=== PATIENT | female | born 1980 | race Caucasian/White ===

== ENCOUNTER 2017-03-09 08:35 | Emergency (ER) | payer OTHER ==
[2017-03-09 08:45] VITALS: BP 127/89
--- NOTE | 2017-03-09 08:55 | UC ---
Respiratory Complaint HPI - HPI Summary HPI Summary: cough x 6 days + chest congestion and pressure, cough is dry, constant, + sob, wheezing, no fever, + chills, fatigue no nasal congestion - History of Current Complaint Chief Complaint: UCRespiratory Stated Complaint: CHEST CONGESTION Time Seen by Provider: 03/09/17 08:46 Hx Obtained From: Patient Hx Last Menstrual Period: unknown ?: No Onset/Duration: Gradual Onset, Lasting Days - 6, Still Present, Worse Since - past 2 days Severity Initially: Mild Severity Currently: Moderate Character: Cough: Nonproductive Aggravating Factors: Exertion, Deep Breaths Alleviating Factors: Nothing Associated Signs And Symptoms: Positive: Dyspnea, Chills, Pleuritic Chest Pain, Wheezing. Negative: Fever, Hemoptysis, Dizziness, Calf Pain, Calf Swelling, Edema, URI, Nasal Congestion, Hoarseness - Allergies/Home Medications Allergies/Adverse Reactions: Allergies Allergy/AdvReac Type Severity Reaction Status Date / Time Sulfa Drugs AdvReac Mild Vomiting Verified 03/09/17 08:40 PMH/Surg Hx/FS Hx/Imm Hx Previously Healthy: Yes - Surgical History Surgical History: Yes Surgery Procedure, Year, and Place: Ovaries removed 11/2014 - Family History Known Family History: Positive: Hypertension, Other - Social History Alcohol Use: Rare Substance Use Type: None Smoking Status (MU): Never Smoked Tobacco - Immunization History Most Recent Influenza Vaccination: NOT THIS SEASON Review of Systems Constitutional: Chills, Fatigue Skin: Negative Eyes: Negative ENT: Negative Respiratory: Shortness Of Breath, Cough Cardiovascular: Negative Is Patient Immunocompromised?: No All Other Systems Reviewed And Are Negative: Yes Physical Exam Triage Information Reviewed: Yes Appearance: Well-Appearing, No Pain Distress, Well-Nourished Vital Signs: Initial Vital Signs Temp 98.2 F 03/09/17 08:40 Pulse 66 03/09/17 08:40 Resp 18 03/09/17 08:40 BP 127/89 03/09/17 08:40 Pulse Ox 100 03/09/17 08:40 Vital Signs Reviewed: Yes Eye Exam: Normal Eyes: Positive: Conjunctiva Clear ENT: Positive: Normal ENT inspection, Hearing grossly normal, Pharynx normal Neck exam: Normal Neck: Positive: Supple, Nontender, No Lymphadenopathy Respiratory: Positive: Chest non-tender, Lungs clear, No respiratory distress, No accessory muscle use, Decreased breath sounds Cardiovascular: Positive: RRR, No Murmur, Pulses Normal Neurological Exam: Normal Skin Exam: Normal UC Diagnostic Evaluation - Laboratory O2 Sat by Pulse Oximetry: 100 Respiratory Course/Dx - Differential Dx/Diagnosis Provider Diagnoses: Bronchitis Discharge - Discharge Plan Condition: Stable Disposition: HOME Prescriptions: Azithromycin TAB* [Zithromax TAB (Z-SELAM) 250 mg #6 tabs] 2 tab PO .TODAY, THEN 1 DAILY #1 selam Benzonatate [TESSALON 200 MG CAP] 200 mg PO Q8H #21 cap Patient Education Materials: Acute Bronchitis (ED) Referrals: No Primary Care Phys,NOPCP [Primary Care Provider] - If Needed
--- NOTE | 2017-03-09 09:07 | RAD ---
Indication: Cough, shortness of breath. 2 views of the chest including dual energy PA views demonstrates no mediastinal shift. Heart is of normal size and configuration. Lung geller are clear. IMPRESSION: No active cardiopulmonary disease is noted.
== END 2017-03-09 09:19 | disposition home or self-care (01) ==
LOC: UCCORT 08:35
DX: J40 Bronchitis, not specified as acute or chronic (principal); Z88.2 Allergy status to sulfonamides
CPT/HCPCS: 71020; 99212; G0463

== ENCOUNTER 2017-07-12 17:25 | Emergency (ER) | payer OTHER ==
[2017-07-12 18:08] VITALS: BP 120/80
[2017-07-12] MEDS ORDERED: Oseltamivir CAP* 75 MG PO ONE (20:38)
[2017-07-12] MEDS ORDERED: Acetaminophen TAB* 325 MG PO ONE (20:39)
--- NOTE | 2017-07-12 20:39 | UC ---
FLU HPI - HPI Summary HPI Summary: Pt presents to with son. Pt states on Sat thought was getting a head cold. yesterday "thought I got hit by a truck." Pt with body aches, fevers cough and fatigue. No n/v/d + Po Tmax 101. + OTC motrin. No cp + cough son also ill Did not get flu vaccine this year Pt's med reviewed this visit - History of Current Complaint Chief Complaint: UCRespiratory Stated Complaint: FEVER,CHILLS,COUGH Time Seen by Provider: 07/12/17 20:18 Hx Obtained From: Patient Hx Last Menstrual Period: 3 yrs ago ?: No Onset/Duration: Gradual Onset, Lasting Days - Allergy/Home Medications Allergies/Adverse Reactions: Allergies Allergy/AdvReac Type Severity Reaction Status Date / Time Sulfa Drugs AdvReac Mild Vomiting Verified 07/12/17 18:02 Home Medications: Home Medications Estradiol TAB(NF) 1 mg BEDTIME 07/12/17 [History Confirmed 07/12/17] medroxyPROGESTERone TAB* [Provera TAB*] 5 mg BEDTIME 07/12/17 [History Confirmed 07/12/17] PMH/Surg Hx/FS Hx/Imm Hx Previously Healthy: Yes - Surgical History Surgical History: Yes Surgery Procedure, Year, and Place: Ovaries removed 11/2014 - Family History Known Family History: Positive: Hypertension, Other - Social History Occupation: Employed Full-time Lives: With Family Alcohol Use: None Substance Use Type: None Smoking Status (MU): Never Smoked Tobacco - Immunization History Most Recent Influenza Vaccination: NOT THIS SEASON Review of Systems Constitutional: Fever, Chills, Fatigue Skin: Negative Eyes: Negative ENT: Negative, Sore Throat, Nasal Discharge, Sinus Congestion Respiratory: Cough Cardiovascular: Negative Gastrointestinal: Negative Genitourinary: Negative Motor: Negative Neurovascular: Negative Musculoskeletal: Negative, Arthralgia Neurological: Negative All Other Systems Reviewed And Are Negative: Yes Physical Exam Triage Information Reviewed: Yes Appearance: Well-Appearing, No Pain Distress, Well-Nourished Vital Signs: Initial Vital Signs Temp 100.5 F 07/12/17 18:03 Pulse 99 07/12/17 18:03 Resp 24 07/12/17 18:03 BP 120/80 07/12/17 18:03 Pulse Ox 99 07/12/17 18:03 Vital Signs Reviewed: Yes Eye Exam: Normal Eyes: Positive: Conjunctiva Clear ENT: Positive: Pharyngeal erythema, Nasal congestion, Nasal drainage, TMs normal Dental Exam: Normal Neck exam: Normal Neck: Positive: Supple, Nontender, No Lymphadenopathy Respiratory Exam: Normal Respiratory: Positive: Chest non-tender, Lungs clear, Normal breath sounds, No respiratory distress, No accessory muscle use Cardiovascular Exam: Normal Cardiovascular: Positive: RRR, No Murmur, Pulses Normal Abdominal Exam: Normal Abdomen Description: Positive: Nontender, No Organomegaly, Soft Bowel Sounds: Positive: Present Musculoskeletal Exam: Normal Neurological Exam: Normal Neurological: Positive: Alert Psychological Exam: Normal Skin Exam: Normal Flu Course/Dx - Course Course Of Treatment: + flu. Will start tamiflu. hydrate. secretion precaution. motrin/apap - Differential Dx/Diagnosis Provider Diagnoses: influenza Discharge - Discharge Plan Condition: Stable Disposition: HOME Prescriptions: Oseltamivir CAP* [Tamiflu CAP*] 75 mg PO BID #10 cap Patient Education Materials: Influenza (ED) Forms: *Gen. Provider Communication, *Work Release Referrals: No Primary Care Phys,NOPCP [Primary Care Provider] - Additional Instructions: - stay well hydrated. Drink plenty of non-alcoholic, non-caffinated beverages - Take tamiflu 2 times a day as prescribed until gone - alternate ibuprofen (Advil, Motrin) and tylenol every 3hours for pain. Take with food - get plenty of restful sleeps - - After you have been on Tamiflu for 2 days - change your toothbrush and your pillowcase. These infections are spread by secrtions - do NOT share eating or drinking utensils - clean items you share with other people such as iphone, computer mouse, TV remote, etc - contact your doctor or return with questions or concerns
== END 2017-07-12 20:58 | disposition home or self-care (01) ==
LOC: UCCORT 17:25
DX: J11.1 Influenza due to unidentified influenza virus with other respiratory manifestations (principal); Z88.2 Allergy status to sulfonamides
CPT/HCPCS: 87502; 99212; A9270-GY; G0463

== ENCOUNTER 2017-08-21 21:25 | Emergency (ER) | payer OTHER ==
[2017-08-21 21:39] VITALS: BP 123/80
[2017-08-21] MEDS ORDERED: Albuterol HFA INHALER* 8 gm MDI INH ONE (21:41)
--- NOTE | 2017-08-21 21:49 | UC ---
UC General HPI - HPI Summary HPI Summary: head congestion, sore throat, cough and chest congestion for a couple of days. pt notes lungs are a little tight. no cp, sob or wheezing. no fever or hx asthma. - History of Current Complaint Chief Complaint: UCRespiratory Stated Complaint: SORE THROAT Time Seen by Provider: 08/21/17 21:33 Hx Obtained From: Patient Hx Last Menstrual Period: unknown, ovaries removed Onset/Duration: Gradual Onset Timing: Constant Pain Intensity: 6 Associated Signs & Symptoms: Positive: Cough. Negative: Chest Pain, Fever, SOB , Wheezing - Allergy/Home Medications Allergies/Adverse Reactions: Allergies Allergy/AdvReac Type Severity Reaction Status Date / Time Sulfa (Sulfonamide Allergy Vomiting Verified 08/21/17 21:39 Antibiotics) Home Medications: Home Medications Pseudoephedrine HCL ER TAB* [Sudafed 12 Hour*] 120 mg PO BID 08/21/17 [History Confirmed 08/21/17] PMH/Surg Hx/FS Hx/Imm Hx Previously Healthy: Yes - Surgical History Surgical History: Yes Surgery Procedure, Year, and Place: Ovaries removed 11/2014 - Family History Known Family History: Positive: Hypertension, Other - Social History Lives: With Family Alcohol Use: None Substance Use Type: None Smoking Status (MU): Never Smoked Tobacco - Immunization History Most Recent Influenza Vaccination: NOT THIS SEASON Vaccination Up to Date: Yes Review of Systems Constitutional: Negative Skin: Negative Eyes: Negative ENT: Sore Throat, Sinus Congestion Respiratory: Cough Cardiovascular: Negative Gastrointestinal: Negative Genitourinary: Negative Motor: Negative Neurovascular: Negative Musculoskeletal: Negative Neurological: Negative Psychological: Negative Is Patient Immunocompromised?: No All Other Systems Reviewed And Are Negative: Yes Physical Exam Triage Information Reviewed: Yes Appearance: Well-Appearing Vital Signs: Initial Vital Signs Temp 97.5 F 08/21/17 21:31 Pulse 71 08/21/17 21:31 Resp 16 08/21/17 21:31 BP 123/80 08/21/17 21:31 Pulse Ox 100 08/21/17 21:31 Vital Signs Reviewed: Yes Eyes: Positive: Conjunctiva Clear ENT: Positive: Pharyngeal erythema, Nasal congestion, TMs normal, Uvula midline. Negative: Tonsillar swelling, Tonsillar exudate, Trismus, Muffled voice, Hoarse voice, Dental tenderness Neck: Positive: Supple, Nontender, No Lymphadenopathy Respiratory: Positive: Lungs clear, No respiratory distress, Decreased breath sounds Cardiovascular: Positive: RRR, No Murmur Abdomen Description: Positive: Nontender, No Organomegaly, Soft Bowel Sounds: Positive: Present Musculoskeletal: Positive: No Edema Neurological: Positive: Alert Psychological: Positive: Age Appropriate Behavior Skin Exam: Normal Diagnostics - Laboratory Diagnostic Studies Completed/Ordered: rapid strep=negative Re-Evaluation - Re-Evaluation Second Eval Re-Evaluation Time: 21:55 Change: Unchanged Course/Dx - Course Course Of Treatment: nothing to suggest bacterial infection. will tx albuterol mdi. - Differential Dx - Multi-Symptom Provider Diagnoses: URI, sore throat, bronchitis Discharge - Discharge Plan Condition: Stable Disposition: HOME Patient Education Materials: Upper Respiratory Infection (ED), Acute Bronchitis (ED), Pharyngitis (ED) Referrals: No Primary Care PhysNOPCP [Primary Care Provider] - SAMMY Maya [Medical Doctor] - 7 Days Additional Instructions: USE THE ALBUTEROL INHALER 2 PUFFS EVERY 6 HOURS
== END 2017-08-21 22:01 | disposition home or self-care (01) ==
LOC: UCCORT 21:25
DX: J06.9 Acute upper respiratory infection, unspecified (principal); J02.9 Acute pharyngitis, unspecified; J40 Bronchitis, not specified as acute or chronic; Z88.2 Allergy status to sulfonamides
CPT/HCPCS: 87651; 99212; A9270-GY; G0463

== ENCOUNTER 2018-06-21 14:24 | Emergency (ER) | payer OTHER ==
[2018-06-21 14:59] VITALS: BP 117/93
--- NOTE | 2018-06-21 16:18 | UC ---
Respiratory Complaint HPI - HPI Summary HPI Summary: C/O sore throat with cough with wheezing. Hoarse voice. Chills. No sinus pain. Some SOB with wheezing. Pain with coughing. - History of Current Complaint Chief Complaint: UCRespiratory Stated Complaint: SOB Time Seen by Provider: 06/21/18 16:10 Hx Obtained From: Patient Hx Last Menstrual Period: yrs ?: No Onset/Duration: Sudden Onset, Lasting Days - 5, Still Present Timing: Constant Severity Initially: Mild Severity Currently: Moderate Pain Intensity: 0 Character: Cough: Nonproductive Aggravating Factors: Deep Breaths, Recumbent Position Alleviating Factors: Nothing Associated Signs And Symptoms: Positive: Dyspnea, Pleuritic Chest Pain, Wheezing , URI, Hoarseness. Negative: Sinus Discomfort - Allergies/Home Medications Allergies/Adverse Reactions: Allergies Allergy/AdvReac Type Severity Reaction Status Date / Time Sulfa (Sulfonamide Allergy Vomiting Verified 06/21/18 14:47 Antibiotics) Home Medications: Home Medications Estradiol TAB(NF) 0.5 mg PO DAILY 06/21/18 [History Confirmed 06/21/18] Ibuprofen TAB* [Motrin TAB* 800 MG] 800 mg PO BID PRN 06/21/18 [History Confirmed 06/21/18] medroxyPROGESTERone TAB* [Provera TAB*] 2.5 mg PO DAILY 06/21/18 [History Confirmed 06/21/18] PMH/Surg Hx/FS Hx/Imm Hx Previously Healthy: Yes - Surgical History Surgical History: Yes Surgery Procedure, Year, and Place: Ovaries removed 11/2014 - Family History Known Family History: Positive: Hypertension, Diabetes, Other - Social History Occupation: Employed Full-time Lives: With Family Alcohol Use: None Substance Use Type: None Smoking Status (MU): Never Smoked Tobacco - Immunization History Most Recent Influenza Vaccination: NOT THIS SEASON Vaccination Up to Date: Yes Review of Systems All Other Systems Reviewed And Are Negative: Yes Constitutional: Positive: Fatigue ENT: Positive: Sore Throat Respiratory: Positive: Shortness Of Breath, Cough Cardiovascular: Positive: Chest Pain - with coughing Is Patient Immunocompromised?: No Physical Exam Triage Information Reviewed: Yes Appearance: No Pain Distress, Well-Nourished, Ill-Appearing Vital Signs: Initial Vital Signs Temp 98.9 F 06/21/18 14:54 Pulse 78 06/21/18 14:54 Resp 20 06/21/18 14:54 BP 117/93 06/21/18 14:54 Pulse Ox 99 06/21/18 14:54 Vital Signs Reviewed: Yes Eyes: Positive: Conjunctiva Clear ENT: Positive: Pharynx normal, TMs normal Neck exam: Normal Respiratory: Positive: Wheezing - moderate expiratory wheezing with coughing/ deep breaths Cardiovascular Exam: Normal Musculoskeletal Exam: Normal Neurological Exam: Normal Psychological Exam: Normal Skin Exam: Normal UC Diagnostic Evaluation - Laboratory O2 Sat by Pulse Oximetry: 99 Respiratory Course/Dx - Differential Dx/Diagnosis Differential Diagnosis/HQI/PQRI: Asthma, Lower Resp Infection, Sinusitis Provider Diagnosis: Upper respiratory infection, Bronchospasm, acute Discharge - Sign-Out/Discharge Documenting (check all that apply): Patient Departure All imaging exams completed and their final reports reviewed: No Studies - Discharge Plan Condition: Stable Disposition: HOME Prescriptions: predniSONE TAB* [Deltasone 20 MG TAB*] 60 mg PO DAILY #18 tab Patient Education Materials: Upper Respiratory Infection (ED), Wheezing (ED), Prednisone (By mouth) Referrals: No Primary Care Phys,NOPCP [Primary Care Provider] - - Billing Disposition and Condition Condition: STABLE Disposition: Home
== END 2018-06-21 16:27 | disposition home or self-care (01) ==
LOC: UCCORT 14:24
DX: J06.9 Acute upper respiratory infection, unspecified (principal); J98.01 Acute bronchospasm; Z88.2 Allergy status to sulfonamides
CPT/HCPCS: 99212; G0463